=== PATIENT | female | born 2000 | race Hispanic/Latino ===

== ENCOUNTER 2023-09-06 10:27 | Day surgery (SDC) | payer OTHER ==
[2023-09-06 10:55] VITALS: BMI 30.7
[2023-09-06 11:16] LABS: Fetal Membranes Rupture No Membranes Rupture (No Rupture)
[2023-09-06 11:31] LABS: Bilirubin Neg (Negative); Blood, Urine Negative (Negative); Clarity Clear (Clear); Glucose, Urine (Dipstick) 100 mg/dL (Negative); Ketone, Urine Negative (Negative); Leukocyte Negative (Negative); Nitrite Negative (Negative); Protein, Urine (Dipstick) Negative (Neg-Trace); Urobilinogen Normal mg/dL (Less than 2)
[2023-09-06 11:40] LABS: Bacteria/HPF Rare-Few HPF (None Seen); CAUTI Indications for Culture Dysuria,urgency,freq; RBC/HPF None Seen HPF (0-3); Squamous Epithelial 0-3 HPF (0-3); WBC/HPF None Seen HPF (0-3)
[2023-09-06 11:41] LABS: Urine Culture Reflex No No
== END 2023-09-06 12:33 | disposition home or self-care (01) ==
LOC: CSHLD/OP 10:27
PROVIDERS: ATTEND Family Medicine
DX: O41.8X30 Other specified disorders of amniotic fluid and membranes, third trimester, not applicable or unspecified (principal); Z3A.27 27 weeks gestation of pregnancy
CPT/HCPCS: 81001; 84112; 87480; 87510; 87660

== ENCOUNTER 2023-11-13 23:05 | Day surgery (SDC) | payer OTHER ==
[2023-11-14 00:26] VITALS: BMI 36.3
[2023-11-14] MEDS ORDERED: Acetaminophen 500 MG TAB PO SCH (00:30)
[2023-11-14 01:15] LABS: Bilirubin Neg (Negative); Blood, Urine Negative (Negative); Glucose, Urine (Dipstick) 100 mg/dL (Negative); Ketone, Urine 5 mg/dL (Negative); Leukocyte Negative (Negative); Nitrite Negative (Negative); Protein, Urine (Dipstick) 30 mg/dl (Neg-Trace); Specific Gravity, Urine 1.025 (1.005-1.030)
[2023-11-14 01:28] LABS: Clarity Clear (Clear)
[2023-11-14 01:35] LABS: Bacteria/HPF 1+ HPF (None Seen); CAUTI Indications for Culture Pregnancy; RBC/HPF 0-3 HPF (0-3); Squamous Epithelial None Seen HPF (0-3); WBC/HPF 0-3 HPF (0-3)
[2023-11-14 01:36] LABS: Urine Culture Reflex Yes Yes
== END 2023-11-14 01:09 | disposition home or self-care (01) ==
LOC: CSHLD/OP 23:05
PROVIDERS: ATTEND Family Medicine
DX: O47.1 False labor at or after 37 completed weeks of gestation (principal); O99.891 Other specified diseases and conditions complicating pregnancy; R10.2 Pelvic and perineal pain; Z3A.37 37 weeks gestation of pregnancy
CPT/HCPCS: 81001; 87086

== ENCOUNTER 2023-11-30 11:02 | Inpatient (IN) | payer OTHER ==
[~2023-11-30 11:02] MED LIST: Bupivacaine 0.25% HCL 30 ML VIAL ONE; Bupivacaine PF 0.5% 30 ML VIAL ONE
[2023-11-30 12:27] VITALS: BMI 38.5
[2023-11-30 12:51] LABS: Fetal Membranes Rupture RUPTURE DETECTED (No Rupture)
[2023-11-30] MEDS ORDERED: Oxytocin 30 units/NS 500 ML 500 ML IV SCH ×2 (13:00)
[2023-11-30] MEDS ORDERED: Acetaminophen 500 MG TAB PO PRN (13:00)
[2023-11-30] MEDS ORDERED: Lidocaine 1% (PF) 30 ML VIAL SC PRN (13:00)
[2023-11-30] MEDS ORDERED: fentaNYL 50 mcg/mL 1 mL Vial SLOW IVP PRN ×2 (13:00→23:00)
[2023-11-30] MEDS ORDERED: Promethazine HCl 25 MG/ML VIAL IM PRN ×3 (13:00→23:00)
[2023-11-30] MEDS ORDERED: hydrALAZINE 20 MG/ML VIAL SLOW IVP PRN (13:00)
[2023-11-30] MEDS ORDERED: Ondansetron PF 4 MG/2 ML Vial IVP PRN ×4 (13:00→23:00)
[2023-11-30] MEDS: Lactated Ringer's 1,000 ML IV SCH (13:24)
[2023-11-30] MEDS ORDERED: fentaNYL/Ropivacaine Epidural 100 ML ONE (13:47)
[2023-11-30 13:56] LABS: Hematocrit 36.4 % (34.9-44.5); Mean Corpuscular Hemoglobin 26.4 pg (27.0-33.0); Mean Corpuscular Volume 80.2 fl (81.6-98.3); Mean Platelet Volume 11.4 fl (7.4-10.4); Platelet Count 269 10x3/uL (150-450); Red Blood Cell (RBC) Count 4.54 10x6/uL (3.90-5.03); White Blood Cell (WBC) Count 9.3 10x3/uL (3.5-10.5)
[2023-11-30 14:17] LABS: Syphilis Antibody Nonreactive (Nonreactive); Syphilis Antibody Index 0.02 S/CO (<1.00 Non-Reactive)
[2023-11-30 14:18] LABS: HBSAg Index 0.19 S/CO (0-0.99); Hep B Surf Ag - L&D Non-Reactive S/CO (NonReactive)
[2023-11-30] MEDS ORDERED: diphenhydrAMINE 50 MG/ML VIAL IVP PRN ×2 (15:06→23:00)
[2023-11-30] MEDS ORDERED: Acetaminophen 325 MG TAB PO PRN (15:06)
[2023-11-30] MEDS ORDERED: ePHEDrine Sulfate 50 MG/10 ML VIAL SLOW IVP PRN (15:06)
[2023-11-30] MEDS ORDERED: Lactated Ringer's 500 ML IV PRN (15:06)
[2023-11-30] MEDS ORDERED: Moisturizing Cream (Eucerin) 113 GM JAR TOP PRN ×2 (15:06→23:00)
[2023-11-30] MEDS ORDERED: Naloxone HCl 0.4 mg/ml Vial IVP PRN ×4 (15:06→23:00)
[2023-11-30] MEDS ORDERED: Communication Order-Pharmacy FS SCH ×2 (15:15→23:00)
[2023-11-30] MEDS ORDERED: fentaNYL 2 mcg/Ropivacaine 0.2% Epidural 100 ML CADD EPIDURAL SCH (15:15)
[2023-11-30] MEDS ORDERED: Azithromycin 500 MG VIAL ONE (21:10)
[2023-11-30] MEDS ORDERED: CEFAZOLIN 2 GM VIAL ONE (21:10)
[2023-11-30] MEDS ORDERED: Morphine PF 10 MG/10 ML VIAL ONE (21:31)
[2023-11-30] MEDS ORDERED: fentaNYL 50 mcg/mL 1 mL Vial ONE ×2 (21:32→22:18)
[2023-11-30] MEDS ORDERED: Oxytocin 10 UNITS/ML VIAL ONE (21:33)
[2023-11-30] MEDS ORDERED: Ondansetron PF 4 MG/2 ML Vial ONE (22:01)
[2023-11-30] MEDS ORDERED: Lidocaine 2% MPF 10 ML AMP (For Epidural Use) ONE (22:18)
[2023-11-30] MEDS ORDERED: Dexamethasone 4 mg/ml Vial ONE (22:24)
[2023-11-30] MEDS ORDERED: Ketorolac Tromethamine 30 MG (1 mL) VIAL IVP SCH (23:00)
[2023-11-30] MEDS ORDERED: HYDROmorphone 0.5 MG/0.5 ML SYRINGE SLOW IVP PRN (23:00)
[2023-11-30] MEDS ORDERED: Promethazine HCl 25 MG SUPP PR PRN (23:00)
[2023-11-30] MEDS ORDERED: Naloxone HCl 0.4 mg/ml Vial IV PRN (23:00)
[2023-11-30] MEDS ORDERED: Ketorolac Tromethamine 30 MG (1 mL) VIAL IVP PRN (23:00)
[2023-11-30] MEDS ORDERED: Meperidine HCl/PF 25 MG (1 mL) VIAL SLOW IVP PRN (23:00)
[2023-12-01] MEDS ORDERED: Bisacodyl 10 MG SUPP PR PRN (01:41)
[2023-12-01] MEDS ORDERED: hydrALAZINE 20 MG/ML VIAL SLOW IVP PRN (01:41)
[2023-12-01] MEDS ORDERED: Promethazine HCl 25 MG/ML VIAL IM PRN (01:41)
[2023-12-01] MEDS ORDERED: diphenhydrAMINE 25 MG CAP PO PRN (01:41)
[2023-12-01] MEDS ORDERED: Boostrix 0.5 ML (Tdap) VIAL (>/=7 yrs of age) IM ONE (01:41)
[2023-12-01] MEDS ORDERED: Lanolin Ointment 7 GM TUBE TOP PRN (01:41)
[2023-12-01] MEDS ORDERED: Ondansetron PF 4 MG/2 ML Vial IVP PRN (01:41)
[2023-12-01 03:49] LABS: Hemoglobin 11.4 g/dL (12.0-15.5); Mean Corpuscular HGB CONC 32.6 g/dL (32.0-36.0); Mean Corpuscular Volume 79.7 fl (81.6-98.3); Mean Platelet Volume 11.3 fl (7.4-10.4); Platelet Count 282 10x3/uL (150-450); RBC Distribution Width 13.8 % (11.5-14.5); Red Blood Cell (RBC) Count 4.39 10x6/uL (3.90-5.03); White Blood Cell (WBC) Count 14.2 10x3/uL (3.5-10.5)
[2023-12-01] MEDS: Ketorolac Tromethamine 30 MG (1 mL) VIAL IVP SCH ×4 (05:55→23:43)
[2023-12-01] MEDS: Prenatal Vitamin 1 TAB PO SCH (08:47)
[2023-12-01] MEDS: Ferrous Sulfate 325 MG TAB PO SCH (08:47)
[2023-12-01] MEDS: Docusate 100 MG CAP PO SCH ×2 (08:47→20:25)
[2023-12-01] MEDS: Simethicone Chewable 80 MG TAB PO PRN (08:47)
[2023-12-01] MEDS ORDERED: Meperidine HCl/PF 25 MG (1 mL) VIAL IM PRN (11:00)
[2023-12-01] MEDS: HYDROcodone/Acetaminophen 5/325 mg Tablet PO PRN ×3 (11:32→20:23)
[2023-12-02] MEDS: Ibuprofen 800 MG TAB PO SCH ×3 (05:39→21:35)
[2023-12-02] MEDS: Ferrous Sulfate 325 MG TAB PO SCH ×3 (05:41→21:36)
[2023-12-02] MEDS: Docusate 100 MG CAP PO SCH ×2 (08:11→21:35)
[2023-12-02] MEDS: HYDROcodone/Acetaminophen 5/325 mg Tablet PO PRN ×4 (08:11→23:30)
[2023-12-02] MEDS: Prenatal Vitamin 1 TAB PO SCH (08:11)
[2023-12-02] MEDS: Simethicone Chewable 80 MG TAB PO PRN (08:11)
[2023-12-02] MEDS: Lactated Ringer's 1,000 ML IV SCH (20:55)
[2023-12-03] MEDS: Ibuprofen 800 MG TAB PO SCH (05:06)
[2023-12-03] MEDS: Ferrous Sulfate 325 MG TAB PO SCH (07:18)
[2023-12-03] MEDS: Docusate 100 MG CAP PO SCH (08:33)
[2023-12-03] MEDS: Prenatal Vitamin 1 TAB PO SCH (08:33)
[2023-12-03] MEDS: HYDROcodone/Acetaminophen 5/325 mg Tablet PO PRN ×2 (08:38→11:50)
[2023-12-03 09:01] VITALS: BP 128/69; TEMP 97.9
== END 2023-12-03 12:10 | disposition home or self-care (01) | DRG 788 ==
LOC: CSHLD/OP 11:02 → CSHLD 18:41 → CSHPP 12-01 00:45
PROVIDERS: ADMIT Family Medicine; ATTEND Family Medicine
PROC: 10D00Z1 Extraction of Products of Conception, Low, Open Approach (ICD-10-PCS; principal; 2023-11-30)
PROC: 10H07YZ Insertion of Other Device into Products of Conception, Via Natural or Artificial Opening (ICD-10-PCS; 2023-11-30)
PROC: 3E033XZ Introduction of Vasopressor into Peripheral Vein, Percutaneous Approach (ICD-10-PCS; 2023-11-30)
DX: O42.02 Full-term premature rupture of membranes, onset of labor within 24 hours of rupture (principal); Z88.1 Allergy status to other antibiotic agents; O32.8XX0 Maternal care for other malpresentation of fetus, not applicable or unspecified; O99.214 Obesity complicating childbirth; Z3A.39 39 weeks gestation of pregnancy; Z37.0 Single live birth; O69.82X0 Labor and delivery complicated by other cord entanglement, without compression, not applicable or unspecified
CPT/HCPCS: 51702; 84112; 85027; 86780; 86850; 86900; 86901; 87340; 99285; J1100; J1885; J2274; J2405; J2590; J3010; S0020